=== PATIENT | female | born 2000 | race Hispanic/Latino ===

== ENCOUNTER 2021-02-06 14:24 | Observation (INO) | payer MEDICAID, OTHER ==
[~2021-02-06] VITALS: Ht 165.1 cm; Wt 60.3 kg
[2021-02-06 15:12] LABS: AMPHET/METH SCREEN,URINE NEGATIVE (NEGATIVE); BARBITURATE SCREEN, URINE NEGATIVE (NEGATIVE); BENZODIAZEPINES SCREEN,URINE NEGATIVE (NEGATIVE); CANNABINOID SCREEN,URINE NEGATIVE (NEGATIVE); COCAINE SCREEN,URINE NEGATIVE (NEGATIVE); OPIATE SCREEN,URINE NEGATIVE (NEGATIVE); PHENCYCLIDINE SCREEN,URINE NEGATIVE (NEGATIVE)
[2021-02-06] MEDS ORDERED: LACTATED RINGERS 1000ML 1,000 ML IV ONE (15:20)
[2021-02-06] MEDS ORDERED: LACTATED RINGERS 1000ML 1,000 ML IV PRN (15:30)
== END 2021-02-06 16:45 | disposition home or self-care (01) ==
LOC: EDH 14:24 → LDH 14:50
PROVIDERS: ADMIT Obstetrics & Gynecology; ATTEND Obstetrics & Gynecology
DX: O26.853 Spotting complicating pregnancy, third trimester (principal); Z79.899 Other long term (current) drug therapy; Z3A.32 32 weeks gestation of pregnancy
CPT/HCPCS: 59025; 76805; 76819; 80305; 96360; G0378; G0379; J7120 ×2

== ENCOUNTER 2021-02-14 19:18 | Inpatient (IN) | payer MEDICAID ==
[~2021-02-14] VITALS: Ht 166.4 cm; Wt 64.9 kg
[2021-02-14] MEDS ORDERED: OXYTOCIN-LR 20 UNITS/1000 ML 1,000 ML IV SCH (20:00)
[2021-02-14] MEDS ORDERED: ROPIVACAINE 0.2% 100ML VIAL 100 ML EP PRN (20:00)
[2021-02-14] MEDS ORDERED: PROMETHAZINE HCL 25 MG/ML 1ML AMPULE IM PRN (20:00)
[2021-02-14] MEDS ORDERED: EPHEDRINE SULFATE 50 MG/ML AMPULE IVP PRN (20:00)
[2021-02-14] MEDS ORDERED: NALOXONE HCL 0.4 MG/1 ML ML IV PRN (20:00)
[2021-02-14] MEDS ORDERED: LACTATED RINGERS 500 ML 500 ML IV PRN (20:00)
[2021-02-14] MEDS ORDERED: DINOPROSTONE 10 MG VAGINAL SUPP VG SCH (20:00)
[2021-02-14] MEDS ORDERED: MEPERIDINE-PF 50 MG/ML SYG IVP PRN (20:00)
[2021-02-14 20:16] LABS: APPEARANCE,URINE Cloudy (CLEAR); BILIRUBIN,URINE Negative (NEGATIVE); COLOR,URINE Yellow (YELLOW); GLUCOSE, URINE (UA) Negative (NEGATIVE); KETONES,URINE Negative (NEGATIVE); LEUKOCYTE ESTERASE ,URINE Large (NEGATIVE); NITRATE,URINE Negative (NEGATIVE); OCCULT BLOOD,URINE Negative (NEGATIVE); PROTEIN,URINE Negative (NEGATIVE)
[2021-02-14 20:33] LABS: BACTERIA,URINE Few /HPF (None Seen); RBC,URINE 0-1 /HPF (0-1); SQUAMOUS EPITHELIAL CELL,UR Moderate /HPF (0-2)
[2021-02-14 20:38] VITALS: BP 121/68
[2021-02-14] MEDS: LACTATED RINGERS 1000ML 1,000 ML IV PRN (20:38)
[2021-02-14] MEDS ORDERED: PREN1TAB80 PO (20:42)
[2021-02-14 20:43] LABS: HEMATOCRIT 27.4 % (36-48); MEAN CORPUSCULAR HEMOGLOBIN 25.1 pg (27.0-33.0); MEAN CORPUSCULAR HGB CONC 31.4 g/dL (32.0-36.0); MEAN CORPUSCULAR VOLUME 80.1 fL (80-100); RED BLOOD CELL COUNT(AUTO) 3.42 MIL/uL (4.00-5.50); WHITE BLOOD COUNT (AUTO) 9.4 K/uL (4.8-10.8)
[2021-02-15] MEDS: LACTATED RINGERS 1000ML 1,000 ML IV PRN (06:22)
[2021-02-15] MEDS ORDERED: OXYTOCIN-LR 20 UNITS/1000 ML 1,000 ML IV SCH ×2 (08:30→13:00)
[2021-02-15] MEDS ORDERED: FENTANYL CITRATE PF 50 MCG/1 ML 2ML VIAL ONE (11:14)
[2021-02-15 11:50] LABS: RAPID PLASMA REAGIN NONREACTIVE (NONREACTIVE)
[2021-02-15] MEDS ORDERED: IBUPROFEN 600 MG TABLET PO PRN (13:00)
[2021-02-15] MEDS ORDERED: WITCH HAZEL 1 PAD TP PRN (13:00)
[2021-02-15] MEDS ORDERED: BENZOCAINE/LANOLIN/ALOE VERA 60 ML AEROSOL TP PRN (13:00)
[2021-02-15] MEDS ORDERED: LANOLIN 30GM OINTMENT TP PRN (13:00)
[2021-02-15] MEDS ORDERED: ACETAMINOPHEN WITH CODEINE 1 TAB TAB PO PRN (13:00)
[2021-02-15] MEDS ORDERED: DIPH,PERTUSS(ACELL),TET VAC/PF 0.5 ML VIAL IM PRN (13:00)
[2021-02-15] MEDS ORDERED: ACETAMINOPHEN 325 MG TAB PO PRN (13:00)
[2021-02-15] MEDS ORDERED: MEASLES/MUMPS/RUBELLA VACCINE, LIVE 0.5 ML/VIAL SQ PRN (13:00)
[2021-02-15 15:12] VITALS: BP 113/67
[2021-02-15] MEDS ORDERED: FLU VACC QS2021-22(6MOS UP)/PF 60 MCG/0.5 ML ML IM ONE ×2 (17:00→18:30)
[2021-02-15 19:30] VITALS: BP 100/70
[2021-02-15] MEDS: DOCUSATE NA 100MG/10ML UDCUP PO SCH (21:00)
[2021-02-15] MEDS ORDERED: DOCUSATE SODIUM 100 MG CAP PO SCH (21:00)
[2021-02-15 23:03] VITALS: BP 99/59
[2021-02-16] VITALS (7 sets, daily range): BP systolic 100–122; BP diastolic 51–90
[2021-02-16] MEDS: IBUPROFEN 100 MG/5 ML SUSP UDCUP PO PRN ×3 (00:36→21:57)
[2021-02-16 06:05] LABS: HEMATOCRIT 28.2 % (36-48); MEAN CORPUSCULAR HGB CONC 31.2 g/dL (32.0-36.0); MEAN CORPUSCULAR VOLUME 80.1 fL (80-100); PLATELET COUNT (AUTO) 215 K/uL (130-400); RED BLOOD CELL COUNT(AUTO) 3.52 MIL/uL (4.00-5.50); RED CELL DISTRIBUTION WIDTH 13.1 % (11.0-15.5)
[2021-02-16] MEDS: DOCUSATE NA 100MG/10ML UDCUP PO SCH ×2 (08:46→21:57)
[2021-02-16 15:12] LABS: HEPATITIS Bs ANTIGEN SCREEN P Negative (Negative)
[2021-02-17 03:05] VITALS: BP 126/81
[2021-02-17 07:09] VITALS: BP 97/57
[2021-02-17] MEDS: IBUPROFEN 100 MG/5 ML SUSP UDCUP PO PRN (09:10)
[2021-02-17] MEDS: DOCUSATE NA 100MG/10ML UDCUP PO SCH (09:12)
[2021-02-17 11:28] VITALS: BP 107/72
[2021-02-17] MEDS ORDERED: IBUP-2077 PO (11:46)
[2021-02-17] MEDS ORDERED: DOCU-116 PO (11:47)
[2021-02-17] MEDS ORDERED: FERR-72 PO (11:52)
== END 2021-02-17 15:45 | disposition home or self-care (01) | DRG 560 ==
LOC: EDH 19:18 → LDH 19:41 → WSH 02-15 15:00
PROVIDERS: ADMIT Obstetrics & Gynecology; ATTEND Obstetrics & Gynecology
PROC: 10E0XZZ Delivery of Products of Conception, External Approach (ICD-10-PCS; principal; 2021-02-15)
PROC: 0KQM0ZZ Repair Perineum Muscle, Open Approach (ICD-10-PCS; 2021-02-15)
PROC: 3E0P7GC Introduction of Other Therapeutic Substance into Female Reproductive, Via Natural or Artificial Opening (ICD-10-PCS; 2021-02-15)
PROC: 3E0R3BZ Introduction of Anesthetic Agent into Spinal Canal, Percutaneous Approach (ICD-10-PCS; 2021-02-15)
PROC: 00HU33Z Insertion of Infusion Device into Spinal Canal, Percutaneous Approach (ICD-10-PCS; 2021-02-15)
PROC: 3E02340 Introduction of Influenza Vaccine into Muscle, Percutaneous Approach (ICD-10-PCS; 2021-02-15)
PROC: 3E0234Z Introduction of Serum, Toxoid and Vaccine into Muscle, Percutaneous Approach (ICD-10-PCS; 2021-02-15)
DX: O36.5930 Maternal care for other known or suspected poor fetal growth, third trimester, not applicable or unspecified (principal); O60.14X0 Preterm labor third trimester with preterm delivery third trimester, not applicable or unspecified; O99.02 Anemia complicating childbirth; O70.1 Second degree perineal laceration during delivery; Z37.0 Single live birth; Z3A.36 36 weeks gestation of pregnancy; Z23 Encounter for immunization
CPT/HCPCS: 36415; 81001; 85027; 86592; 86701; 86850; 86900; 86901; 87088; 87340; 87390; 88307; 90707; 90715; A4314; A4351; G0378; J2175; J2550; J2590; J2795; J3010; J7120; Q2035

== ENCOUNTER 2022-05-11 22:17 | Emergency (ER) | payer MEDICAID ==
[~2022-05-11] VITALS: Ht 165.1 cm; Wt 53.1 kg
[~2022-05-11 22:17] MED LIST: DOCU-116 PO; FERR-72 PO; IBUP-2077 PO; PREN1TAB80 PO
[2022-05-11 23:22] LABS: BASOPHILS % (AUTO) 0.3 % (0.0-5.0); HEMATOCRIT 29.7 % (36-48); LYMPHOCYTES % (AUTO) 19.3 % (21.0-51.0); MEAN CORPUSCULAR HEMOGLOBIN 25.5 pg (27.0-33.0); MEAN CORPUSCULAR HGB CONC 32.7 g/dL (32.0-36.0); MONOCYTES % (AUTO) 4.1 % (3.0-13.0); NEUTROPHILS % (AUTO) 73.8 % (40.0-77.0); PLATELET COUNT (AUTO) 261 K/uL (130-400); RED BLOOD CELL COUNT(AUTO) 3.81 MIL/uL (4.00-5.50); RED CELL DISTRIBUTION WIDTH 15.3 % (11.0-15.5); WHITE BLOOD COUNT (AUTO) 9.9 K/uL (4.8-10.8)
[2022-05-11] MEDS ORDERED: METOCLOPRAMIDE 10 MG/2 ML VIAL IM ONE (23:30)
[2022-05-11] MEDS ORDERED: LACTATED RINGERS 1000ML 1,000 ML IV ONE (23:30)
[2022-05-11 23:31] LABS: CREATININE 0.6 mg/dL (0.5-1.5)
[2022-05-11 23:39] LABS: APPEARANCE,URINE CLEAR (CLEAR); BILIRUBIN,URINE NEGATIVE (NEGATIVE); COLOR,URINE LIGHT-YELLOW (YELLOW); GLUCOSE, URINE (UA) NEGATIVE (NEGATIVE); KETONES,URINE 10 mg/dL (NEGATIVE); LEUKOCYTE ESTERASE ,URINE 250 Leu/uL (NEGATIVE); NITRATE,URINE NEGATIVE (NEGATIVE); OCCULT BLOOD,URINE NEGATIVE (NEGATIVE); PROTEIN,URINE NEGATIVE (NEGATIVE); UROBILINOGEN,URINE 0.2 mg/dL (0.2-1.0)
[2022-05-11 23:42] LABS: MUCUS,URINE FEW LPF (None Seen); RBC,URINE 0-1 /HPF (0-1); SQUAMOUS EPITHELIAL CELL,UR FEW /HPF (0-2)
[2022-05-12] LABS: TOTAL PROTEIN, SERUM 7.2 g/dL (6.0-8.3)
[2022-05-12] MEDS ORDERED: METO5 PO (00:28)
[2022-05-12] MEDS ORDERED: CEPH500C2 PO (00:28)
[2022-05-12 00:46] VITALS: BP 105/71
== END 2022-05-12 01:26 | disposition home or self-care (01) ==
LOC: EDH 22:17
DX: O23.41 Unspecified infection of urinary tract in pregnancy, first trimester (principal); N39.0 Urinary tract infection, site not specified; O21.0 Mild hyperemesis gravidarum; O26.891 Other specified pregnancy related conditions, first trimester; E86.0 Dehydration; F41.9 Anxiety disorder, unspecified; O99.011 Anemia complicating pregnancy, first trimester; Z3A.13 13 weeks gestation of pregnancy
CPT/HCPCS: 99285; 96360; 76801; 80053; 84702; 83690; 85025; 86900; 86901; 87088; 81001; 36415; 96372; 93005; J7120; J2765; 76805; 96361

== ENCOUNTER 2022-07-13 20:56 | Observation (INO) | payer MEDICAID ==
[~2022-07-13] VITALS: Ht 162.6 cm; Wt 53.1 kg
[~2022-07-13 20:56] MED LIST changes: +CEPH500C2 PO; +METO5 PO
[2022-07-13 21:20] VITALS: BP 107/62
[2022-07-13] MEDS ORDERED: LACTATED RINGERS 1000ML 1,000 ML IV SCH (22:30)
[2022-07-13 22:54] LABS: APPEARANCE,URINE CLEAR (CLEAR); BILIRUBIN,URINE NEGATIVE (NEGATIVE); COLOR,URINE YELLOW (YELLOW); GLUCOSE, URINE (UA) NEGATIVE (NEGATIVE); KETONES,URINE NEGATIVE (NEGATIVE); LEUKOCYTE ESTERASE ,URINE 250 Leu/uL (NEGATIVE); NITRATE,URINE NEGATIVE (NEGATIVE); OCCULT BLOOD,URINE NEGATIVE (NEGATIVE); PH,URINE 6.5 (5.0-8.0); PROTEIN,URINE 20 mg/dL (NEGATIVE); UROBILINOGEN,URINE 0.2 mg/dL (0.2-1.0)
[2022-07-13 23:28] LABS: MUCUS,URINE FEW LPF (None Seen); SQUAMOUS EPITHELIAL CELL,UR RARE /HPF (0-2)
[2022-07-14] MEDS ORDERED: LACTATED RINGERS 1000ML IV SCH
== END 2022-07-14 01:05 | disposition home or self-care (01) ==
LOC: EDH 20:56 → LDH 20:57
PROVIDERS: ADMIT Obstetrics & Gynecology; ATTEND Obstetrics & Gynecology
DX: O36.8120 Decreased fetal movements, second trimester, not applicable or unspecified (principal); Z3A.26 26 weeks gestation of pregnancy; Z87.891 Personal history of nicotine dependence
CPT/HCPCS: 96360 ×2; 87088; 81001; 76805; G0378 ×3; J7120

== ENCOUNTER 2022-07-17 20:56 | Observation (INO) | payer MEDICAID ==
[~2022-07-17] VITALS: Ht 165.1 cm; Wt 57.1 kg
[2022-07-17 21:07] VITALS: BP 116/74
[2022-07-17] MEDS ORDERED: LACTATED RINGERS 1000ML IV PRN (21:30)
[2022-07-17 21:46] LABS: APPEARANCE,URINE CLOUDY (CLEAR); BILIRUBIN,URINE NEGATIVE (NEGATIVE); COLOR,URINE LIGHT-YELLOW (YELLOW); GLUCOSE, URINE (UA) NEGATIVE (NEGATIVE); KETONES,URINE NEGATIVE (NEGATIVE); LEUKOCYTE ESTERASE ,URINE 500 Leu/uL (NEGATIVE); NITRATE,URINE NEGATIVE (NEGATIVE); OCCULT BLOOD,URINE NEGATIVE (NEGATIVE); PH,URINE 6.5 (5.0-8.0); PROTEIN,URINE NEGATIVE (NEGATIVE); UROBILINOGEN,URINE 0.2 mg/dL (0.2-1.0)
[2022-07-17 21:51] LABS: BACTERIA,URINE RARE /HPF (None Seen); MUCUS,URINE RARE LPF (None Seen); SQUAMOUS EPITHELIAL CELL,UR MOD /HPF (0-2); WBC,URINE 26-50 /HPF (0-1)
[2022-07-17 22:32] LABS: AMPHET/METH SCREEN,URINE NEGATIVE (NEGATIVE); BARBITURATE SCREEN, URINE NEGATIVE (NEGATIVE); BENZODIAZEPINES SCREEN,URINE NEGATIVE (NEGATIVE); CANNABINOID SCREEN,URINE NEGATIVE (NEGATIVE); COCAINE SCREEN,URINE NEGATIVE (NEGATIVE); OPIATE SCREEN,URINE NEGATIVE (NEGATIVE); PHENCYCLIDINE SCREEN,URINE NEGATIVE (NEGATIVE)
== END 2022-07-17 23:10 | disposition home or self-care (01) ==
LOC: EDH 20:56 → LDH 20:57
PROVIDERS: ADMIT Obstetrics & Gynecology; ATTEND Obstetrics & Gynecology
DX: O36.8120 Decreased fetal movements, second trimester, not applicable or unspecified (principal); Z3A.27 27 weeks gestation of pregnancy
CPT/HCPCS: 59025; 80305; 81001; 76819; G0378 ×2; G0379

== ENCOUNTER 2023-02-08 08:41 | Emergency (ER) | payer MEDICAID ==
[~2023-02-08] VITALS: Ht 165.1 cm; Wt 55.3 kg
[~2023-02-08 08:41] MED LIST changes: -CEPH500C2 PO; -METO5 PO; +PNV11TAB5 PO
[2023-02-08 09:50] LABS: BASOPHILS # (AUTO) 0.03 K/uL (0.00-0.20); BASOPHILS % (AUTO) 0.3 % (0.0-5.0); EOSINOPHILS # (AUTO) 0.05 K/uL (0.00-0.70); EOSINOPHILS % (AUTO) 0.6 % (0.0-8.0); HEMATOCRIT 30.7 % (36-48); IMMATURE GRANULOCYTE ABSOLUTE 0.03 K/uL (0-1); LYMPHOCYTES # (AUTO) 1.4 K/uL (1.0-4.8); LYMPHOCYTES % (AUTO) 15.8 % (21.0-51.0); MEAN CORPUSCULAR HEMOGLOBIN 19.5 pg (27.0-33.0); MEAN CORPUSCULAR HGB CONC 29.3 g/dL (32.0-36.0); MEAN CORPUSCULAR VOLUME 66.6 fL (79-99); MONOCYTES # (AUTO) 0.3 K/uL (0.1-1.0); MONOCYTES % (AUTO) 3.8 % (3.0-13.0); NEUTROPHILS # (AUTO) 6.8 K/uL (1.8-7.7); NEUTROPHILS % (AUTO) 79.2 % (40.0-77.0); PLATELET COUNT (AUTO) 332 K/uL (130-400); RED BLOOD CELL COUNT(AUTO) 4.61 MIL/uL (4.00-5.50); RED CELL DISTRIBUTION WIDTH 15.9 % (11.0-15.5); WHITE BLOOD COUNT (AUTO) 8.6 K/uL (4.8-10.8)
[2023-02-08 10:00] LABS: CREATININE 0.9 mg/dL (0.5-1.5); POTASSIUM 3.9 mmol/L (3.5-5.1)
[2023-02-08 10:06] LABS: ALBUMIN 3.9 g/dL (3.5-5.0); BILIRUBIN,TOTAL 0.3 mg/dL (0.2-1.0); TOTAL PROTEIN, SERUM 8.6 g/dL (6.0-8.3)
[2023-02-08 11:43] VITALS: BP 107/69; PULSE 95; RESP 17; O2SAT 99
== END 2023-02-08 12:06 | disposition home or self-care (01) ==
LOC: EDH 08:41
DX: A05.9 Bacterial foodborne intoxication, unspecified (principal); K52.9 Noninfective gastroenteritis and colitis, unspecified
CPT/HCPCS: 36415; 80053; 83690; 84703; 85025

== ENCOUNTER 2024-09-07 14:32 | Emergency (ER) | payer MEDICAID ==
[~2024-09-07] VITALS: Ht 167.6 cm; Wt 60.3 kg
[2024-09-07] MEDS: ondanSETRON 4MG INJ IVP STA (15:09)
[2024-09-07] MEDS: 0.9%NACL 1000ML 1,000 ML IV STA (15:09)
[2024-09-07] MEDS: FAMOTIDINE 20MG VIAL IV STA (15:09)
[2024-09-07 15:14] LABS: BASOPHILS # (AUTO) 0.02 K/uL (0.00-0.20); BASOPHILS % (AUTO) 0.3 % (0.0-5.0); EOSINOPHILS # (AUTO) 0.32 K/uL (0.00-0.70); EOSINOPHILS % (AUTO) 4.7 % (0.0-8.0); IMMATURE GRANULOCYTE ABSOLUTE 0.01 K/uL (0-1); LYMPHOCYTES # (AUTO) 2.5 K/uL (1.0-4.8); LYMPHOCYTES % (AUTO) 36.8 % (21.0-51.0); MEAN CORPUSCULAR HEMOGLOBIN 23.1 pg (27.0-33.0); MEAN CORPUSCULAR HGB CONC 30.6 g/dL (32.0-36.0); MEAN CORPUSCULAR VOLUME 75.3 fL (79-99); MONOCYTES # (AUTO) 0.5 K/uL (0.1-1.0); MONOCYTES % (AUTO) 7.2 % (3.0-13.0); NEUTROPHILS # (AUTO) 3.5 K/uL (1.8-7.7); NEUTROPHILS % (AUTO) 50.9 % (40.0-77.0); PLATELET COUNT (AUTO) 214 K/uL (130-400); RED BLOOD CELL COUNT(AUTO) 4.38 MIL/uL (4.00-5.50); RED CELL DISTRIBUTION WIDTH 15.1 % (11.0-15.5); WHITE BLOOD COUNT (AUTO) 6.8 K/uL (4.8-10.8)
[2024-09-07 15:27] LABS: CREATININE 0.8 mg/dL (0.5-1.0); POTASSIUM 4.3 mmol/L (3.5-5.1)
[2024-09-07 15:37] LABS: ALBUMIN 3.7 g/dL (3.5-5.0); BILIRUBIN,DIRECT 0.1 mg/dL (0.0-0.3); BILIRUBIN,TOTAL 0.2 mg/dL (0.2-1.0); TOTAL PROTEIN, SERUM 7.7 g/dL (6.0-8.3)
--- NOTE | 2024-09-07 16:55 | ERN ---
ED Note History of Present Illness Stated Complaint: OTHER Chief Complaint: Abdominal Pain Time Seen by MD: 14:34 Time Seen by Midlevel: 14:38 Dictation: 24-year-old female coming in with complaints of stomach pain, nausea, diarrhea started this morning. Patient states she began with the symptoms after eating a cue taco from the gas station. Allergies: Coded Allergies: No Known Drug Allergies (Unverified Allergy, Unknown, 02/06/21) Home Meds Reported Medications [id number]/FA/Omega3/Dha/Fish Oil ( Gummies) 1 Each Tab.chew, 1 EACH PO DAILY, TAB.CHEW 10/13/22 Ferrous Sulfate (Ferrous Sulfate) 325 Mg Tablet, 325 MG PO DAILY, #30 TAB 02/17/21 Docusate Sodium (Colace) 100 Mg Capsule, 100 MG PO BID, #60 CAP 02/17/21 Ibuprofen (Ibuprofen 800 mg Tab) 800 Mg Tab, 800 MG PO Q8H PRN for PAIN, TAB 02/17/21 Vits W-Ca,Fe,FA(<1Mg) ( Vitamins) 1 Each Tablet, 1 EACH PO DAILY, TAB 02/14/21 Past Medical History Past Medical History: No Pertinent History Additional Past Medical Hx: RETAINED PRODUCT OF CONCEPTION Surgical History: None LMP: August 13, 2024 : 2 Para: 1 Aborts: 0 Review of System Dictation Constitutional: Negative for fever,chills, and weight loss Eyes: Negative for injury, pain,redness, and discharge ENT: Negative for injury,pain or swelling Cardiovascular: Negative for chest pain, palpitations, and edema Respiratory: Negative for shortness of breath, cough, and wheezing, Abdomen/GI: Abdominal pain, nausea and diarrhea Back: Negative for injury and pain : Negative for injury, bleeding and discharge MS/Extremity: Negative for injury and deformity Skin: Negative for rash, and discoloration Neuro: Negative for headache, weakness, numbness, tingling, and seizure Psych: Negative for suicide ideation, homicidal ideation, and hallucinations Review of Systems: was completed Initial Vital Sign VS Vital Signs Date Time Temp Pulse Resp B/P (MAP) Pulse Ox O2 Delivery O2 Flow Rate FiO2 09/07/24 14:34 98.4 80 16 106/82 99 Room Air 0 09/07/24 15:17 21 Physical Exam Dictation General: awake, alert, NAD Head/Face: Normocephalic, atraumatic Eyes: PERRL, EOMI, vision at baseline ENT: oral cavity clear, TMs clear, no signs of infection Neck: Trachea midline, supple, no nuchal rigidity Cardiovascular: RRR, normal S1/S2, No MRGs, no JVD Respiratory: CTAB, no respiratory distress, No rales or wheezes Abdomen: Soft, non-tender, non-distended, normal bowel sounds, no guarding or rebound. Skin: Warm, dry, normal turgor, no rash MS/Extremity: Pulses equal, no cyanosis, neurovascular intact, FROM Neuro: COAx4, GCS 15, strength 5/5, CN 2-12 intact, normal cerebellar exam, normal gait, Psych: Normal behavior, mood, and affect normal Results (Laboratory/Radiology) Laboratory/Radiology Laboratory Tests Test 09/07/24 15:06 White Blood Count 6.8 K/uL (4.8-10.8) Red Blood Count 4.38 MIL/uL (4.00-5.50) Hemoglobin 10.1 g/dL (12.0-16.0) L Hematocrit 33.0 % (36-48) L Mean Corpuscular Volume 75.3 fL (79-99) L Mean Corpuscular Hemoglobin 23.1 pg (27.0-33.0) L Mean Corpuscular Hemoglobin Concent 30.6 g/dL (32.0-36.0) L Red Cell Distribution Width 15.1 % (11.0-15.5) Platelet Count 214 K/uL (130-400) Mean Platelet Volume 10.1 fL (7.5-10.5) Immature Granulocyte % (Auto) 0.1 % (0-1) Neutrophils (%) (Auto) 50.9 % (40.0-77.0) Lymphocytes (%) (Auto) 36.8 % (21.0-51.0) Monocytes (%) (Auto) 7.2 % (3.0-13.0) Eosinophils (%) (Auto) 4.7 % (0.0-8.0) Basophils (%) (Auto) 0.3 % (0.0-5.0) Neutrophils # (Auto) 3.5 K/uL (1.8-7.7) Lymphocytes # (Auto) 2.5 K/uL (1.0-4.8) Monocytes # (Auto) 0.5 K/uL (0.1-1.0) Eosinophils # (Auto) 0.32 K/uL (0.00-0.70) Basophils # (Auto) 0.02 K/uL (0.00-0.20) Absolute Immature Granulocyte (auto 0.01 K/uL (0-1) Nucleated Red Blood Cells 0.0 % (0.0-0.19) Red Blood Cell Morphology See comments Sodium Level 141 mmol/L (136-145) Potassium Level 4.3 mmol/L (3.5-5.1) Chloride Level 107 mmol/L (101-111) Carbon Dioxide Level 26 mmol/L (21-32) Blood Urea Nitrogen 12 mg/dL (7-18) Creatinine 0.8 mg/dL (0.5-1.0) Glomerular Filtration Rate Calc 106 mL/min (>90) Random Glucose 104 mg/dL (70-105) Total Calcium 8.8 mg/dL (8.5-10.1) Total Bilirubin 0.2 mg/dL (0.2-1.0) Direct Bilirubin 0.1 mg/dL (0.0-0.3) Aspartate Amino Transf (AST/SGOT) 40 U/L (10-37) H Alanine Aminotransferase (ALT/SGPT) 34 U/L (12-78) Alkaline Phosphatase 82 U/L (50-136) Total Protein 7.7 g/dL (6.0-8.3) Albumin 3.7 g/dL (3.5-5.0) Lipase 65 U/L (16-77) Human Chorionic Gonadotropin, Quant 0 mIU/mL (0-5) Labs Reviewed?: Yes ED Course ED Course Orders Procedure Category Date Status Time Cbc With Differential LAB 09/07/24 Complete 14:55 Basic Metabolic Panel LAB 09/07/24 Complete 14:55 Lipase LAB 09/07/24 Complete 14:55 Hepatic Function Panel LAB 09/07/24 Complete 14:55 Hcg,Quantitative LAB 09/07/24 Complete 14:55 0.9%Nacl 1000ml (Ns PHA 09/07/24 Complete 1000ml) 14:56 Ondansetron 4mg Inj PHA 09/07/24 Complete (Zofran 4mg Inj) 14:56 Famotidine 20mg Vial PHA 09/07/24 Complete (Pepcid 20mg Vial) 14:56 Current Medications Medications (Trade) Dose Ordered Sig/Garo Route PRN Reason Start Time Stop Time Status Last Admin Dose Admin Famotidine (Pepcid 20mg Vial) 20 mg ONCE STAT IV 09/07/24 14:56 09/07/24 14:59 DC 09/07/24 15:09 Ondansetron HCl (zoFRAN 4MG INJ) 4 mg ONCE STAT IVP 09/07/24 14:56 09/07/24 14:59 DC 09/07/24 15:09 Sodium Chloride 1,000 ml @ 1,000 mls/hr Q1H STAT IV 09/07/24 14:56 09/07/24 15:55 DC 09/07/24 15:09 Vital Signs Date Time Temp Pulse Resp B/P (MAP) Pulse Ox O2 Delivery O2 Flow Rate FiO2 09/07/24 15:17 98.2 75 16 106/80 98 Room Air* 0 21 09/07/24 14:34 98.4 80 16 106/82 99 Room Air 0 Medical Decision Making MDM MDM: 24-year-old female coming in with complaints of stomach pain, nausea, diarrhea started this morning. Patient states she began with the symptoms after eating a "Q taco" from the gas station. Lab work unremarkable. Patient received for which antiemetics and antacids in the ER. Patient states he feels much better, vital signs stable. We will discharge patient home. Educated this most likely is gastroenteritis from the taco shake this morning. Educated on signs and symptoms of return back to the ER. Patient verbalized understanding, answered all questions. Differential diagnosis: Pancreatitis, cholelithiasis, gastroenteritis Rationale: Tests considered and ordered secondary to shared decision making include: Previous outside records reviewed: Old ER visits. Risk of complication and/or morbidity or mortality of patient management: None Medications-Per medication reconciliation Need for hospitalization: Patient does not meet criteria for hospitalization. Need for emergency major/minor surgery: No There are no social concerns with this patient. Prescription drug management Prescriptions will include symptomatic care Patient's prior external medical records from other ER visits were reviewed by me as indicated. Prior testing and results from previous visits were reviewed. Prior tests were taken into account with medical decision making and resource utilization, independent historian/historians were used to obtain complete medical history. I independently interpreted the test that were performed, results were reviewed by me and considered findings on radiology if ordered. Medical management and examination interpretation discussions were had by me with other qualified healthcare professionals as indicated for the patient's care. DX & DISP Disposition: Discharge Departure Impression: Primary Impression: Gastroenteritis Condition: Stable Additional Instructions: Avoid eating any spicy, fried or fatty foods in the next couple of days. Stay hydrated. Follow up with your primary doctor. Referrals: DAVID SANTOS MD (PCP) Time of Disposition: 16:54 I have reviewed the case, and I agree with, Diagnosis and Plan MINNA DOSHI NP Sep 07, 2024 16:55
[2024-09-07 17:04] VITALS: BP 112/80; PULSE 70; RESP 16; TEMP 98.3; O2SAT 98
== END 2024-09-07 17:12 | disposition home or self-care (01) ==
LOC: EDH 14:32
DX: K52.9 Noninfective gastroenteritis and colitis, unspecified (principal); R10.2 Pelvic and perineal pain
CPT/HCPCS: 99284; 96374; 96361; 96375; 80076; 80048; 84702; 83690; 85025; 36415; J3490; J7030; J2405

== ENCOUNTER 2024-11-09 10:33 | Emergency (ER) | payer SELFPAY ==
[~2024-11-09] VITALS: Ht 165.1 cm; Wt 61.2 kg
--- NOTE | 2024-11-09 10:37 | ERN ---
ED Note History of Present Illness Stated Complaint: ABD PAIN Chief Complaint: Abdominal Pain Time Seen by MD: 10:34 Dictation: PATIENT IS A 24-YEAR-OLD FEMALE COMING IN VIA EMS WITH COMPLAINTS OF A SUDDEN ONSET OF A SUPRAPUBIC AND BILATERAL LOWER QUADRANT PAIN TENDERNESS THAT RADIATES TO HER BACK BILATERALLY ONSET 30 MINUTES PRIOR TO ARRIVAL. SHE STATES SHE HAD SEEN HER BOYFRIEND WAS WALKING HOME TO HER MOTHER'S HOUSE WHEN SHE HAD THE ONSET OF THE SYMPTOMS. NO FEVER NO CHILLS NO NAUSEA VOMITING NO DIARRHEA. NO PRIMARY CARE DOCTOR. STATES SHE DOES HAVE A HISTORY OF GASTRITIS. PATIENT RECEIVED FENTANYL AND ZOFRAN PRIOR TO ARRIVAL. STATES HER LAST MENSTRUAL PERIOD WAS LAST MONTH HOWEVER SHE HAS [place] PLANT AND DOES NOT THINK SHE IS . Allergies: Coded Allergies: No Known Drug Allergies (Unverified Allergy, Unknown, 02/06/21) Home Meds Reported Medications [id number]/FA/Omega3/Dha/Fish Oil ( Gummies) 1 Each Tab.chew, 1 EACH PO DAILY, TAB.CHEW 10/13/22 Ferrous Sulfate (Ferrous Sulfate) 325 Mg Tablet, 325 MG PO DAILY, #30 TAB 02/17/21 Docusate Sodium (Colace) 100 Mg Capsule, 100 MG PO BID, #60 CAP 02/17/21 Ibuprofen (Ibuprofen 800 mg Tab) 800 Mg Tab, 800 MG PO Q8H PRN for PAIN, TAB 02/17/21 Vits W-Ca,Fe,FA(<1Mg) ( Vitamins) 1 Each Tablet, 1 EACH PO DAILY, TAB 02/14/21 Past Medical History Past Medical History: No Pertinent History Additional Past Medical Hx: RETAINED PRODUCT OF CONCEPTION Surgical History: None : 2 Para: 1 Aborts: 0 RN Note Reviewed/Agreed w/PFSH: Yes Review of System Dictation CONSTITUTIONAL: NEGATIVE EXCEPT FOR HPI HEAD/FACE: NEGATIVE EXCEPT FOR HPI EENT: NEGATIVE EXCEPT FOR HPI RESPIRATORY: NEGATIVE EXCEPT FOR HPI GASTROINTESTINAL/ABDOMINAL: NEGATIVE EXCEPT FOR HPI SUPRAPUBIC AND BILATERAL LOWER QUADRANT PAIN THAT RADIATES TO BILATERAL FLANKS GENITOURINARY: NEGATIVE EXCEPT FOR HPI MUSCULOSKELETAL: NEGATIVE EXCEPT FOR HPI INTEGUMENTARY: NEGATIVE EXCEPT FOR HPI NEUROLOGICAL/PSYCH: NEGATIVE EXCEPT FOR HPI HEMATOLOGIC/LYMPHATIC: NEGATIVE EXCEPT FOR HPI ALL SYSTEMS NEGATIVE, EXCEPT NOTED ABOVE. 13 POINT REVIEW OF SYSTEMS ASSESSED AND ALL NEGATIVE EXCEPT FOR ABOVE. Initial Vital Sign VS Vital Signs Date Time Temp Pulse Resp B/P (MAP) Pulse Ox O2 Delivery O2 Flow Rate FiO2 11/09/24 10:34 98.8 88 19 109/64 98 Room Air 0 11/09/24 10:47 21 Physical Exam Dictation VITAL SIGNS REVIEWED GENERAL APPEARANCE: ALERT, ORIENTED X 3, MILD ACUTE DISTRESS, WELL DEVELOPED, NOURISHED. PATIENT GIVEN FENTANYL EN ROUTE BY EMS HEAD AND FACE: NON-TRAUMATIC. EYES: PERRL, PINK CONJUNCTIVAS, EYELID NO TRAUMA, ANTERIOR CHAMBER WITH ARCUS SENILIS. EARS: PINNAS INTACT AND NO SIGNS OF TRAUMA OR ERYTHEMA EAR CANALS CLEAR AND NO DISCHARGE TM NO ERYTHEMA NOSE: NO DISCHARGE, NO BLEEDING. OROPHARYNX: MOUTH NORMAL, TONGUE PINK, PHARYNX CLEAR,NO ERYTHEMA, TONSILS NO EXUDATES, NO ABSCESSES NOTED, MUCOUS MEMBRANE MOIST NECK: SUPPLE, NON-TENDER, NO THYROMEGALY, NO MASSES, NO JVD, NO BRUITS BREAST:DEFERRED CHEST:NO TENDERNESS, NO CREPITUS, NO PARADOXICAL MOVEMENT, NO RETRACTIONS LUNGS:CLEAR, WELL-VENTILATED, SYMMETRIC, NO RALES, NO WHEEZING, NO RHONCHI, NO STRIDOR, GOOD BREATH SOUNDS BILATERALLY HEART: REGULAR RATE, REGULAR RHYTHM, NO MURMUR, NO GALLOPS VASCULAR: NO PERIPHERAL EDEMA, ABDOMEN: SOFT, POSITIVE BOWEL SOUNDS, NONDISTENDED, NO GUARDING, MILD SUPRAPUBIC AND BILATERAL QUADRANT TENDERNESS., NO REBOUND, NO MASSES NO HEPATOMEGALY, NO SPLENOMEGALY, NO GALLEGOS'S SIGN, NO HERNIAS. NO GUARDING NO REBOUND RECTAL: DEFERRED GENITAL: DEFERRED NEUROLOGICAL: NORMAL SPEECH, MOTOR FUNCTION INTACT, SENSORY FUNCTION INTACT MUSCULOSKELETAL: NECK NONTENDER, FULL RANGE OF MOTION, BACK NONTENDER, FULL RANGE OF MOTION, EXTREMITIES: NONTENDER, FULL RANGE OF MOTION SKIN: COLOR PINK, DRY, NO TURGOR, NO RASH, NO LACERATIONS, NO ABRASIONS, NO CONTUSIONS. LYMPHATIC: DEFERRED Results (Laboratory/Radiology) Laboratory/Radiology Laboratory Tests Test 11/09/24 10:51 11/09/24 11:31 White Blood Count 13.5 K/uL (4.8-10.8) H Red Blood Count 5.30 MIL/uL (4.00-5.50) Hemoglobin 12.6 g/dL (12.0-16.0) Hematocrit 40.3 % (36-48) Mean Corpuscular Volume 76.0 fL (79-99) L Mean Corpuscular Hemoglobin 23.8 pg (27.0-33.0) L Mean Corpuscular Hemoglobin Concent 31.3 g/dL (32.0-36.0) L Red Cell Distribution Width 15.6 % (11.0-15.5) H Platelet Count 259 K/uL (130-400) Mean Platelet Volume 10.7 fL (7.5-10.5) H Immature Granulocyte % (Auto) 0.3 % (0-1) Neutrophils (%) (Auto) 73.5 % (40.0-77.0) Lymphocytes (%) (Auto) 21.0 % (21.0-51.0) Monocytes (%) (Auto) 4.1 % (3.0-13.0) Eosinophils (%) (Auto) 1.0 % (0.0-8.0) Basophils (%) (Auto) 0.1 % (0.0-5.0) Neutrophils # (Auto) 9.9 K/uL (1.8-7.7) H Lymphocytes # (Auto) 2.8 K/uL (1.0-4.8) Monocytes # (Auto) 0.6 K/uL (0.1-1.0) Eosinophils # (Auto) 0.14 K/uL (0.00-0.70) Basophils # (Auto) 0.02 K/uL (0.00-0.20) Absolute Immature Granulocyte (auto 0.04 K/uL (0-1) Nucleated Red Blood Cells 0.0 % (0.0-0.19) Red Blood Cell Morphology See comments Sodium Level 140 mmol/L (136-145) Potassium Level 3.4 mmol/L (3.5-5.1) L Chloride Level 106 mmol/L (101-111) Carbon Dioxide Level 25 mmol/L (21-32) Blood Urea Nitrogen 17 mg/dL (7-18) Creatinine 0.8 mg/dL (0.5-1.0) Glomerular Filtration Rate Calc 106 mL/min (>90) Random Glucose 112 mg/dL (70-105) H Total Calcium 8.7 mg/dL (8.5-10.1) Lipase 66 U/L (16-77) Serum Test, Qualitative NEGATIVE (NEGATIVE) Urine Color YELLOW (YELLOW) Urine Appearance CLEAR (CLEAR) Urine pH 5.5 (5.0-8.0) Urine Specific [place] 1.030 (1.001-1.031) Urine Protein 10 mg/dL (NEGATIVE) H Urine Glucose (UA) NEGATIVE mg/dL (NEGATIVE) Urine Ketones 5 mg/dL (NEGATIVE) H Urine Occult Blood NEGATIVE (NEGATIVE) Urine Nitrate NEGATIVE (NEGATIVE) Urine Bilirubin 0.5 mg/dL (NEGATIVE) H Urine Urobilinogen 2.0 mg/dL (0.2-1.0) H Urine Leukocyte Esterase 250 [place]/uL (NEGATIVE) H Urine RBC 2-5 /HPF (0-1) H Urine WBC 51-100 /HPF (0-1) H Urine Squamous Epithelial Cells MOD /HPF (0-2) Urine Bacteria None /HPF (None Seen) Labs Reviewed?: Yes ED Course ED Course Orders Procedure Category Date Status Time Testing, LAB 11/09/24 Complete Serum Hcg 10:35 Cbc With Differential LAB 11/09/24 Complete 10:35 Urinalysis Profile LAB 11/09/24 Complete 10:35 0.9%Nacl 1000ml (Ns PHA 11/09/24 Complete 1000ml) 11:00 Morphine 2mg Syg PHA 11/09/24 Complete (Morphine 2mg Syg) 11:00 Ondansetron 4mg Inj PHA 11/09/24 Complete (Zofran 4mg Inj) 11:00 Lipase LAB 11/09/24 Complete 10:35 Basic Metabolic Panel LAB 11/09/24 Complete 10:35 Culture Urine ASAD 11/09/24 In Process 11:46 Ct Abdomen/Pelvis CT 11/09/24 Resulted W/Contrast 12:53 Iohexol (Omnipaque) PHA 11/09/24 Complete 13:37 Current Medications Medications (Trade) Dose Ordered Sig/Garo Route PRN Reason Start Time Stop Time Status Last Admin Dose Admin Iohexol (Omnipaque) 75 ml STK-MED ONCE IV 11/09/24 13:37 11/09/24 13:38 DC Morphine Sulfate (morPHINE 2MG SYG) 2 mg ONCE ONCE IVP 11/09/24 11:00 11/09/24 11:01 DC 11/09/24 12:07 Ondansetron HCl (zoFRAN 4MG INJ) 4 mg ONCE ONCE IVP 11/09/24 11:00 11/09/24 11:01 DC 11/09/24 12:06 Sodium Chloride 1,000 ml @ 0 mls/hr ONCE ONCE IV 11/09/24 11:00 11/09/24 11:01 DC 11/09/24 12:06 Vital Signs Date Time Temp Pulse Resp B/P (MAP) Pulse Ox O2 Delivery O2 Flow Rate FiO2 11/09/24 12:53 98.8 88 18 115/79 98 Room Air* 0 11/09/24 10:47 104 19 118/73 96 Room Air* 0 21 11/09/24 10:34 98.8 88 19 109/64 98 Room Air 0 1510/patient will be discharged home hemodynamically cable, acute cystitis with hematuria CTs negative. Discharged home to follow up with her primary care doct or. Medical Decision Making MDM MDM: Differential diagnosis: Ectopic /UTI/pyelonephritis/urinary tract infection/electrolyte imbalance/dehydration Rationale: Tests considered and ordered secondary to shared decision making include: Radiology/labs Previous outside records reviewed: Old ER visits. Risk of complication and/or morbidity or mortality of patient management: None Medications-Per medication reconciliation Need for hospitalization: Patient does not meet criteria for hospitalization. None Need for emergency major/minor surgery: No There are no social concerns with this patient. Prescription drug management Augmentin/ibuprofen/Pyridium Prescriptions will include symptomatic care Patient's prior external medical records from other ER visits were reviewed by me as indicated. Prior testing and results from previous visits were reviewed. Prior tests were taken into account with medical decision making and resource utilization, independent historian/historians were used to obtain complete medical history. I independently interpreted the test that were performed, results were reviewed by me and considered findings on radiology if ordered. Medical management and examination interpretation discussions were had by me with other qualified healthcare professionals as indicated for the patient's care. DX & DISP Disposition: Discharge Departure Impression: Primary Impression: Acute cystitis with hematuria Additional Impression: Dehydration Condition: Stable Scripts Phenazopyridine HCl (Pyridium) 200 Mg Tablet 200 MG PO TID for painful urination, #10 TAB 0 Refills Prov: BEN GAUTHIER [employer] FRETTED INSTRUMENT [employer]KER 11/09/24 Amoxicillin/Potassium Clav (Amox Tr-K Clv 875-125 mg Tab) 875 Mg-125 Mg Tablet 1 EACH PO BID for 5 Days, #10 TAB 0 Refills Prov: BEN GAUTHIER NP 11/09/24 Ibuprofen (Ibuprofen 800 mg Tab) 800 Mg Tab 800 MG PO Q8H PRN for fever or pain, #30 TAB 0 Refills Prov: BEN GAUTHIER NP 11/09/24 Additional Instructions: Follow-up with primary care provider in 1 to 2 days. Take medications as directed here in the emergency room. Okay to continue home medications unless otherwise discussed during your visit in the emergency room today. Return to your nearest emergency room if symptoms worsen or if there is no improvement. Call 911 if you need immediate assistance. Take Tylenol or Motrin [id number] as needed and if no contraindications are present. Increase oral hydration. A wound culture or urine culture was ordered here in the emergency room department please follow-up with primary care provider and advise them to get repeat ports from our facility. If you had any Kuldeep wrap/splints that were applied here, please do not remove them until you see your primary care or specialty. Take antibiotics as directed until gone. Increase your water intake. Remember the Pyridium will turn your urine orange red. Follow up with the primary care Referrals: SELF,REFERRAL (PCP) Time of Disposition: 15:13 I have reviewed the case, and I agree with, Diagnosis and Plan BEN GAUTHIER NP Nov 09, 2024 10:37
[2024-11-09 10:59] LABS: IMMATURE GRANULOCYTE ABSOLUTE 0.04 K/uL (0-1); NUCLEATED RED BLOOD CELLS 0.0 % (0.0-0.19); PLATELET COUNT (AUTO) 259 K/uL (130-400); RED BLOOD CELL COUNT(AUTO) 5.30 MIL/uL (4.00-5.50); RED CELL DISTRIBUTION WIDTH 15.6 % (11.0-15.5); WHITE BLOOD COUNT (AUTO) 13.5 K/uL (4.8-10.8)
[2024-11-09 11:12] LABS: CREATININE 0.8 mg/dL (0.5-1.0); GLOMERULAR FILTR. RATE CALC 106.0 mL/min (>90); GLUCOSE,RANDOM 112.0 mg/dL (70-105); SODIUM SERUM 140.0 mmol/L (136-145); UREA NITROGEN, BLOOD 17.0 mg/dL (7-18)
[2024-11-09 11:44] LABS: APPEARANCE,URINE CLEAR (CLEAR); GLUCOSE, URINE (UA) NEGATIVE (NEGATIVE); LEUKOCYTE ESTERASE ,URINE 250 Leu/uL (NEGATIVE); NITRATE,URINE NEGATIVE (NEGATIVE); OCCULT BLOOD,URINE NEGATIVE (NEGATIVE)
[2024-11-09 11:46] LABS: ADD UA MICROSCOPIC YES
[2024-11-09] MEDS: 0.9%NACL 1000ML 1,000 ML IV ONE (12:06)
[2024-11-09 12:35] LABS: SQUAMOUS EPITHELIAL CELL,UR MOD /HPF (0-2)
[2024-11-09] MEDS ORDERED: IOHEXOL-350 75 ML VIAL IV ONE (13:37)
--- NOTE | 2024-11-09 13:42 | NUR ---
PT IN CT AT THIS TIME
--- NOTE | 2024-11-09 14:49 | HMCIMG ---
CLINICAL INFORMATION Right lower quadrant pain COMPARISON None. TECHNIQUE Volumetric helical CT images of the abdomen and pelvis with contrast FINDINGS Liver: Normal. Gallbladder: No calcified gallstones or sludge. No wall thickening. Biliary System: Non-dilated. Pancreas: Normal. Spleen: Normal. Adrenals: Normal. Kidneys: Normal bilaterally. Ureters: Normal. Bladder: Circumferential bilateral thickening. Pelvis: No pelvic masses. Small volume pelvic fluid. Stomach: Normal. Duodenum: Normal. Small Bowel: Normal. Colon: Normal. Appendix: Normal. Lymph Nodes: No lymphadenopathy. Peritoneum: No ascites or free air. Retroperitoneum: Normal. Vessels: Normal. Abdominal Wall: Normal. Bones: Normal. Lung Bases: Normal. Inferior Mediastinum: Normal. IMPRESSION No acute intra-abdominal findings. Normal appendix. Circumferential bladder wall thickening, which can be seen in the setting of cystitis. Correlate with urinalysis. Small volume pelvic fluid, likely physiologic. /[place]
[2024-11-09] MEDS ORDERED: IBUP-2077 PO (15:14)
[2024-11-09] MEDS ORDERED: PHEN-776 PO (15:14)
[2024-11-09] MEDS ORDERED: AMOX1TAB16 PO (15:14)
[2024-11-09 15:19] VITALS: BP 114/76; PULSE 80; RESP 18; TEMP 98.8; O2SAT 98
[2024-11-09] MEDS: AMOX/CLAV 875/125MG TAB PO ONE (15:26)
== END 2024-11-09 15:25 | disposition home or self-care (01) ==
LOC: EDH 10:33
DX: N30.01 Acute cystitis with hematuria (principal); E86.0 Dehydration
CPT/HCPCS: 99285; 74177; 96374; 96361; 96375; 80048; 84703; 83690; 85025; 87086; 81001; 36415; J2270; J7030; J2405; Q9967